=== PATIENT | male | born 1965 | race Caucasian/White ===

== ENCOUNTER 2020-08-29 16:54 | Emergency (ER) | payer BC, MEDICAID ==
[~2020-08-29] VITALS: Ht 195.6 cm; Wt 97.5 kg
[2020-08-29] MEDS ORDERED: IV NORMAL SALINE 1000 ML BAG IV ONE (17:30)
[2020-08-29 17:42] LABS: *BILIRUBIN,URIN 1+ (NEGATIVE); *BLOOD, URINE NEGATIVE (NEGATIVE); *CLARITY,URINE CLEAR (CLEAR); *COLOR,URINE YELLOW (YELLOW); *KETONES,URINE TRACE (NEGATIVE); *UROBILINOGEN,URINE 0.2 E.U./dl (NORMAL); LEUKOCYTE ESTERASE ,URINE NEGATIVE (NEGATIVE); NITRITE, URINE NEGATIVE (NEGATIVE); UGLUCOSE NEGATIVE (NEGATIVE)
[2020-08-29 17:43] LABS: BASOPHILS % (AUTO) 0.7 % (0.0-2.0); EOSINOPHILS # (AUTO) 0.1 K/uL (0.0-0.7); EOSINOPHILS % (AUTO) 2.6 % (0.0-7.0); HEMATOCRIT 39.7 % (36.7-47.1); LYMPHOCYTES # (AUTO) 1.8 K/uL (20.0-40.0); MEAN CORPUSCULAR HEMOGLOBIN 26.3 uug (23.8-33.4); MEAN CORPUSCULAR HGB CONC 33 g/dL (32.5-36.3); MEAN CORPUSCULAR VOLUME 80.2 fL (73.0-96.2); MONOCYTES # (AUTO) 0.5 K/uL (2.0-10.0); MONOCYTES % (AUTO) 10.9 % (0.0-11.0); NEUTROPHILS # (AUTO) 1.8 K/uL (1.8-8.9); NEUTROPHILS % (AUTO) 42.8 % (38.5-71.5); PLATELET COUNT (AUTO) 181 K/uL (152-348); RED BLOOD CELL COUNT(AUTO) 4.94 MIL/uL (4.06-5.63); WHITE BLOOD COUNT (AUTO) 4.3 K/uL (3.6-10.2)
[2020-08-29 17:45] LABS: CREATININE 0.9 mg/dL (0.6-1.3); POTASSIUM 3.9 mmol/L (3.5-5.1)
[2020-08-29 17:50] LABS: BILIRUBIN,DIRECT 0.1 mg/dL (0.0-0.2); BILIRUBIN,TOTAL 0.3 mg/dL (0.2-1.0); TOTAL PROTEIN, SERUM 6.6 g/dL (6.4-8.2)
[2020-08-29] MEDS ORDERED: ACETAMINOPHEN ES 500 MG TABLET ONE (18:54)
--- NOTE | 2020-08-29 18:55 | NUR ---
Received handoff report from JACKLYN Allen for continuity of care. Patient here for c/o diarrhea, IVF has been infused. Patient recently given Tylenol for [employer]. Will continue to monitor.
[2020-08-29] MEDS ORDERED: ACETAMINOPHEN ES 500 MG TABLET PO ONE (19:00)
--- NOTE | 2020-08-29 19:33 | NUR ---
Patient discharged to home in stable condition. Written and verbal after care instructions given. Patient verbalizes understanding of instructions. Stressed follow up or return to ER for worsening s/s. IV removed. Catheter intact and site benign. Pressure and 4x4 gauze applied to site. No bleeding noted. Patient ambulated with steady gait. will be driving patient home.
[2020-08-29 19:34] VITALS: BP 119/73
== END 2020-08-29 19:34 | disposition home or self-care (01) ==
LOC: ER 16:57
DX: R10.9 Unspecified abdominal pain (principal); R19.7 Diarrhea, unspecified; F17.210 Nicotine dependence, cigarettes, uncomplicated; R94.31 Abnormal electrocardiogram [ECG] [EKG]; I70.0 Atherosclerosis of aorta
CPT/HCPCS: 36415; 71045; 83690; 85025; 93005; A4663; A9150; J7030

== ENCOUNTER 2021-01-31 23:00 | Emergency (ER) | payer BC ==
[~2021-01-31] VITALS: Ht 182.9 cm; Wt 95.3 kg
--- NOTE | 2021-01-31 23:32 | NUR ---
Patient drove to the ER with family. Patient arrived complaining of allergic reaction to Advil. He had a reaction to Advil in the past, but he stated he forgot that he was allergic. Patient presents with marked angioededema and generaslized rash and raised hives. No complaints of SOB or signs of distress. SR on the monitor, BP stable. made aware.
[2021-01-31] MEDS ORDERED: diphenhydrAMINE 50 MG/1 ML VIAL IV ONE (23:45)
[2021-01-31] MEDS ORDERED: FAMOTIDINE. 20 MG/2 ML VIAL IV ONE (23:45)
[2021-01-31] MEDS ORDERED: methylPREDNISolone SOD SUCC 40 MG/ML VIAL IV ONE (23:45)
[2021-02-01] MEDS ORDERED: methylPREDNISolone SOD SUCC 40 MG/ML VIAL ONE (00:03)
[2021-02-01] MEDS ORDERED: diphenhydrAMINE 50 MG/1 ML VIAL ONE (00:03)
[2021-02-01] MEDS ORDERED: FAMOTIDINE. 20 MG/2 ML VIAL IV ONE (00:04)
[2021-02-01] MEDS ORDERED: PRED50TA PO (01:11)
[2021-02-01] MEDS ORDERED: FAMO-132 PO (01:11)
[2021-02-01] MEDS ORDERED: DIPH25CA83 PO (01:11)
[2021-02-01 01:22] VITALS: BP 155/94
--- NOTE | 2021-02-01 01:23 | NUR ---
Patient discharged to home in stable condition. Written and verbal after care instructions given. ALl prescriptions provided and explained to the patient. Explaind that the patient is not to drive home due to medications given during visit tonight. Patient verbalizes understanding of instructions. Stressed follow up or return to ER for worsening s/s. Patient left in stable condition, no complaints of SOB, no signs of distress.
== END 2021-02-01 01:15 | disposition home or self-care (01) ==
LOC: ER 23:02
DX: L50.0 Allergic urticaria (principal); T39.315A Adverse effect of propionic acid derivatives, initial encounter; Y92.89 Other specified places as the place of occurrence of the external cause; F17.200 Nicotine dependence, unspecified, uncomplicated
CPT/HCPCS: 96374; 96375; 99284; J1200; J2920; J3490